=== PATIENT | female | born 1980 | race Caucasian/White ===

== ENCOUNTER 2019-11-30 19:20 | Observation (INO) | payer SELFPAY ==
[2019-11-30 19:51] LABS: #Eosinphils 0.2 thou/uL (0.0-0.7); #Monocytes 0.5 thou/uL (0.11-0.59); %Basophils 0.1 % (0.0-1.0); %Eosinophils 2.5 % (0.0-10.0); %Lymphocytes 29.7 % (21.0-51.0); %Monocytes 7.4 % (0.0-10.0); %Neutrophils 60.1 % (42.0-75.0); Hemoglobin 13.5 g/dL (12.0-16.0); Mean Corpuscular HGB CONC 34.3 g/dL (32.0-36.0); Mean Corpuscular Hemoglobin 33.1 pg (27.0-31.0); Mean Corpuscular Volume 96.7 fL (78.0-98.0); Mean Platelet Volume 6.6 fL (7.4-10.4); Platelet Count 245 thou/uL (130-400); RBC Distribution Width 11.1 % (11.5-14.5); Red Blood Cell (RBC) Count 4.08 mill/uL (4.20-5.40); White Blood Cell (WBC) Count 6.7 thou/uL (4.8-10.8)
--- NOTE | 2019-11-30 20:09 | RAD ---
RADIOGRAPH CHEST 1 VIEW: DATE: 11-30-2019 TIME: 7:13 P.M. HISTORY: 39-year-old female with chest pain. FINDINGS: There are no air space densities, pulmonary edema, pneumothorax, or cardiomegaly. The lateral costop hrenic angles are sharp. IMPRESSION: No acute cardiopulmonary findings. jn POS: JIN
[2019-11-30 20:13] LABS: ALT (SGPT) 40 U/L (8-55); AST (SGOT) 22 U/L (5-34); Alkaline Phosphatase 76 U/L (40-110); Anion Gap 11 mmol/L (10-20); BUN (Urea Nitrogen) 12 mg/dL (7.0-18.7); Bilirubin, Total 0.2 mg/dL (0.2-1.2); Calc. Creatinine Clearance 0 mL/min (70-130); Calcium 8.8 mg/dL (7.8-10.44); Carbon Dioxide 23 mmol/L (22-29); Chloride 108 mmol/L (98-107); Estimated GFR-MDRD 69; Globulin 2.7 g/dL (2.4-3.5); Glucose 137 mg/dL (70-105); Protein, Total 6.7 g/dL (6.0-8.3); Sodium 138 mmol/L (136-145)
[2019-11-30 23:43] LABS: Troponin I 0.089 ng/mL (< 0.028)
[2019-12-01] MEDS ORDERED: HumaLOG 300 UNITS/3 ML VIAL SC PRN ×2 (01:43)
[2019-12-01] MEDS ORDERED: Dextrose 5% in Water 1,000 ML IV PRN (01:43)
[2019-12-01] MEDS ORDERED: Dextrose 50% Abboject 50 ML SYRINGE SLOW IVP PRN (01:43)
[2019-12-01 02:14] VITALS: BMI 30.3
[2019-12-01] MEDS ORDERED: Ondansetron ODT 4 MG TAB PO PRN (02:20)
[2019-12-01] MEDS ORDERED: Acetaminophen 325 MG TAB PO PRN (02:20)
--- NOTE | 2019-12-01 02:28 | HP ---
PRIMARY CARE PHYSICIAN: Brandon. CHIEF COMPLAINT: Chest pain. HISTORY OF PRESENT ILLNESS: The patient is a 39-year-old female with a past medical history significant for diabetes type 2, former smoker, illicit drug abuse, methamphetamines, and PTSD who presents to the ER for the above complaint. The patient reports the acute onset of chest pain 45 minutes prior to the arrival at the ER. Location of the chest pain was her right chest, radiating to her back. She describes as sharp and squeezing, exacerbated with exertion and relieved by aspirin and nitroglycerin. The patient denies any other associated symptoms. The patient has a history of diabetes type 2, but no history of hypertension or high cholesterol. She denies any history of COPD or asthma. She did abuse methamphetamines greater than one year ago. She has no history of DVT or PE. She is mobile. She has not been recently admitted to hospital or had any recent surgeries. EMS was called. When EMS showed up, the patient was hypertensive and tachycardic. She was given aspirin and nitroglycerin sublingual, which relieved her pain. Upon presentation to the ER, the patient was afebrile, hypertensive with a blood pressure of 157/96, tachycardic with a heart rate of 93, respirations were 20. Pain was 1/10. EKG showed sinus rhythm, 98 beats per minute. No ST elevations. Chest x-ray was negative for any acute process. Troponin was 0.015. Second troponin was 0.089. CMP, CBC and LFTs were unremarkable. The patient was admitted to the floor. PAST MEDICAL HISTORY: 1. Diabetes, type 2. 2. PTSD. 3. Migraine headaches. PAST SURGICAL HISTORY: 1. Cholecystectomy. 2. Right hand mass. SOCIAL HISTORY: The patient currently has been at [facility]. She got out of [facility] and has been there for 55 days. She has a history of methamphetamine abuse, has not abused for the past year. She has a history of smoking, quit one year ago. Has no alcohol intake. FAMILY HISTORY: Contributory for cardiac disease, her mother and maternal grandmother. ALLERGIES: PENICILLIN. HOME MEDICATIONS: 1. Prazosin 1 mg p.o. at bedtime. 2. Topamax 25 mg p.o. b.i.d. 3. Tegretol 200 mg p.o. q.a.m. and 400 mg p.o. at bedtime. 4. Buspirone 10 mg p.o. b.i.d. 5. Vistaril 50 mg p.o. b.i.d. REVIEW OF SYSTEMS: All review of systems are negative unless otherwise stated in the HPI. PHYSICAL EXAMINATION: VITAL SIGNS: Temperature 98.1, blood pressure 157/96, heart rate 93, respirations 20, and SpO2 of 98% on room air, pain 0/10. CONSTITUTIONAL: The patient is alert and oriented to person, place, and time. Appears comfortable, nontoxic. No acute distress. HEAD: Atraumatic and normocephalic. EYES: Extraocular muscles are intact. PERRLA. ENT: Nares are patent bilaterally. Oropharynx is clear. Uvula is midline. Moist mucous membranes. No oral lesions. NECK: Supple. Trachea is midline. No JVD. No cervical adenopathy. Full range of motion. RESPIRATORY/CHEST: Respirations are even and unlabored. Clear to auscultation. No rhonchi, wheezes, or rales. CARDIOVASCULAR: S1, S2 appreciated. No murmurs, rubs, or gallops. ABDOMEN: Soft, nontender, nondistended. Active bowel sounds. No guarding or rigidity. No rebound tenderness. No abdominal bruit auscultated. BACK: Full range of motion. No cervical spinal tenderness. No CVA tenderness. UPPER EXTREMITIES: Full range of motion. Strength is normal. Sensation is intact. Palpable radial pulses. LOWER EXTREMITIES: Full range of motion, normal strength, sensation is intact. Palpable pedal pulses. No swelling. NEUROLOGICAL: The patient is alert and oriented to person, place, and time. Moves all extremities well. No focal deficits. Normal gait. PSYCHIATRIC: The patient is alert and oriented to person, place, and time. Normal affect. Denies any suicidal or homicidal ideation at this time. LABS AND DIAGNOSTICS: EKG, sinus rhythm. Chest x-ray, negative for acute process. Initial troponin 0.015. Second troponin 0.089. Sodium 138, potassium 4.0, chloride 108, CO2 23, BUN 12, creatinine 0.90, glucose 137, total bilirubin 0.2, AST 22, ALT 40, alkaline phosphatase 76, albumin 4.0. WBCs 6.7, hemoglobin 13.5, hematocrit 39.5, platelets 245. IMPRESSION AND PLAN: 1. Chest pain. We will admit the patient to the telemetry floor, observation status. Expected length of stay is less than 2 midnights. The patient presented with acute onset of chest pain with a past medical history of diabetes and illicit drug use. Chest pain was relieved by aspirin and nitroglycerin by EMS. The patient's HEART score is at 3, low risk. We will continue to trend troponins. We will check a BNP, TSH, fasting lipid, and mag. We will order an echo, cardiac stress test in the morning. We will check a UDS. We will leave the patient n.p.o. after midnight. We will continue aspirin. 2. Diabetes, type 2. The patient does not take any medications. She says she manages blood sugar by diet. The patient presented with a blood sugar of 137. We will place her on a mild sliding scale. We will check Accu-Cheks before meals and at bedtime. 3. Posttraumatic stress disorder. The patient denies any suicidal or homicidal ideation at this time. The patient takes prazosin, buspirone, and Vistaril at night. We will restart medications when reconciled by Nursing. 4. SCDs for deep venous thrombosis prophylaxis. No gastrointestinal prophylaxis. 5. The patient is a full code. 6. Discussed the case with Dr. Otto. Job ID: [id number] MTDD
[2019-12-01 02:29] LABS: BHCG - Serum Negative (NEGATIVE); Pregs Control Background? CLEAR/WHITE (CLR/WHITE); Pregs Control Bar Appear? YES (CONTROL BAR)
[2019-12-01] MEDS: Sodium Chloride 0.9% 1,000 ML IV SCH ×3 (02:32→20:52)
[2019-12-01 02:43] LABS: Troponin I 0.079 ng/mL (< 0.028)
[2019-12-01 02:45] LABS: Cardiac Risk 4.7 (Less than 4.5)
[2019-12-01 02:52] LABS: Thyroid Stimulating Hormone 3.4715 uIU/mL (0.35-4.94)
[2019-12-01 02:54] LABS: Bacteria/HPF None Seen HPF (None Seen); Bilirubin Negative (Negative); Blood, Urine Negative (Negative); Clarity Extra Turbid (Clear); Glucose, Urine (Dipstick) Normal (Negative); Ketone, Urine Negative (Negative); Leukocyte Negative Leu/uL (Negative); Nitrite Negative (Negative); Protein, Urine (Dipstick) 20 mg/dL (Neg-Trace); Urobilinogen Normal mg/dL (Less than 2); WBC/HPF 0-3 HPF (0-3); pH, Urine 7.5 (5.0-9.0)
[2019-12-01 02:58] LABS: Amphetamine Not Detected (NotDetected); Barbiturates Screen Not Detected (NotDetected); Benzodiazepine Screen Not Detected (NotDetected); Cocaine Metabolite Screen Not Detected (NotDetected); Medtox Control Line Valid? VALID (VALID); Medtox Reader # READER 4; Methadone Not Detected (NotDetected); Methamphetamine Not Detected (NotDetected); Opiate Screen Not Detected (NotDetected); Oxycodone Screen Not Detected (NotDetected); Phencyclidine (PCP) Not Detected (NotDetected); THC/Cannabinoid Screen Not Detected (NotDetected); Tricyclic Screen Not Detected (NotDetected)
[2019-12-01 06:04] LABS: #Basophils 0.1 thou/uL (0.0-0.2); #Eosinphils 0.2 thou/uL (0.0-0.7); #Lymphocytes 2.1 thou/uL (1.20-3.40); #Monocytes 0.7 thou/uL (0.11-0.59); #Neutrophils 4.1 thou/uL (1.40-6.50); %Basophils 1.2 % (0.0-1.0); %Eosinophils 2.6 % (0.0-10.0); %Lymphocytes 29.1 % (21.0-51.0); %Monocytes 9.6 % (0.0-10.0); %Neutrophils 57.6 % (42.0-75.0); Hemoglobin 12.8 g/dL (12.0-16.0); Mean Corpuscular HGB CONC 33.9 g/dL (32.0-36.0); Mean Corpuscular Hemoglobin 32.6 pg (27.0-31.0); Mean Platelet Volume 6.8 fL (7.4-10.4); Platelet Count 231 thou/uL (130-400); RBC Distribution Width 11.2 % (11.5-14.5); Red Blood Cell (RBC) Count 3.93 mill/uL (4.20-5.40); White Blood Cell (WBC) Count 7.2 thou/uL (4.8-10.8)
[2019-12-01 06:25] LABS: Anion Gap 11 mmol/L (10-20); BUN (Urea Nitrogen) 15 mg/dL (7.0-18.7); Calc. Creatinine Clearance 119 mL/min (70-130); Calcium 8.5 mg/dL (7.8-10.44); Carbon Dioxide 24 mmol/L (22-29); Chloride 110 mmol/L (98-107); Estimated GFR-MDRD 78; Glucose 90 mg/dL (70-105); Potassium 4.5 mmol/L (3.5-5.1); Sodium 140 mmol/L (136-145)
[2019-12-01 06:30] LABS: Troponin I 0.082 ng/mL (< 0.028)
[2019-12-01] MEDS: busPIRone HCl 10 MG TAB PO SCH ×2 (08:34→20:57)
[2019-12-01] MEDS: Aspirin 81 mg Enteric Coated Tablet PO SCH (08:35)
[2019-12-01] MEDS ORDERED: carBAMazepine 200 MG TAB PO SCH (09:00)
[2019-12-01] MEDS ORDERED: Prazosin HCl 1 MG CAP PO SCH (09:00)
[2019-12-01] MEDS: carBAMazepine 200 MG TAB PO SCH ×2 (09:46→20:58)
[2019-12-01] MEDS: hydrOXYzine Pamoate 25 mg Capsule PO SCH ×2 (09:46→20:57)
[2019-12-01] MEDS ORDERED: Aspirin Chewable 81 MG TAB ONE (14:10)
[2019-12-01] MEDS: Topiramate 25 MG TAB PO SCH ×2 (14:13→21:08)
--- NOTE | 2019-12-01 14:35 | NM ---
Exam: Nuclear medicine cardiac stress with EF and wall motion HISTORY: Chest pain TECHNIQUE: Patient was administered 10.2 mCi of technetium 99M sestamibi intravenously for rest imagi ng; 31.5 cm of technetium 90 9M sestamibi for stress imaging Cardiac gating is performed FINDINGS: Small fixed defect may be present in the superior aspect of the septum. No reversibility. 3 times a day is 0.75 End-diastolic volume is 67 mL End systolic volume is 14 mL Cardiac gating: Normal wall motion and thickening. 79% ejection fraction IMPRESSION: 1. Small fixed defect in the superior aspect of the septum. No reversibility. 2. 79% ejection fraction.
--- NOTE | 2019-12-01 17:54 | PDOC.HOSPP ---
- Subjective Encounter Date: 12/01/19 Encounter Time: 17:53 Subjective: Ms. Luis was seen today in follow-up of chest pain. She has not had any since yesterday. - Objective Vital Signs & Weight: Vital Signs (12 hours) Temp Pulse Resp BP BP Pulse Ox 12/01/19 17:17 97.0 F L 80 16 101/55 L 98 12/01/19 14:25 97.7 F 95 13 120/64 99 12/01/19 08:38 72 15 120/58 L 98 12/01/19 07:19 97.5 F L 72 15 120/58 L 98 Weight Weight 182 lb 5 oz I&O: 11/30/19 12/01/19 12/02/19 06:59 06:59 06:59 Intake Total 300 Output Total 100 Balance 200 Result Diagrams: 12/01/19 05:42 12/01/19 05:42 Additional Labs: Accuchecks 12/01/19 12/01/19 12/01/19 16:29 10:37 05:58 POC Glucose 137 H 90 93 Hospitalist ROS - Medication Medications: Active Medications Generic Name Dose Route Start Last Admin Trade Name Sander PRN Reason Stop Dose Admin Aspirin 81 mg 12/01/19 09:00 12/01/19 08:35 Ecotrin PO 81 mg DAILY JAY Administration Buspirone HCl 10 mg 12/01/19 09:00 12/01/19 08:34 Buspar PO 10 mg BID JAY Administration Carbamazepine 200 mg 12/01/19 09:00 12/01/19 09:46 Tegretol PO 200 mg QAM JAY Administration Hydroxyzine Pamoate 50 mg 12/01/19 09:00 12/01/19 09:46 Vistaril PO 50 mg BID JAY Administration Sodium Chloride 1,000 mls @ 75 mls/hr 12/01/19 01:45 12/01/19 02:32 Normal Saline 0.9% IV 1,000 mls .[id number] JAY Administration Prazosin HCl 1 mg 12/01/19 09:00 12/01/19 14:13 Minipress PO 1 mg DAILY JAY Administration Sodium Chloride 10 ml 12/01/19 09:00 12/01/19 09:59 Flush - Normal Saline IVF Not Given Q12HR JAY Topiramate 25 mg 12/01/19 09:00 12/01/19 14:13 Topamax PO 25 mg BID JAY Administration - Exam Eye: PERRL, anicteric sclera Heart: RRR, no murmur, no gallops, no rubs, normal peripheral pulses Respiratory: CTAB, no wheezes, no rales, no ronchi, normal chest expansion Gastrointestinal: soft, non-tender, non-distended, normal bowel sounds, no palpable masses Extremities: no cyanosis, no edema Hosp A/P (1) Chest pain Code(s): R07.9 - CHEST PAIN, UNSPECIFIED Status: Acute (2) Diabetes mellitus type 2 in nonobese Code(s): E11.9 - TYPE 2 DIABETES MELLITUS WITHOUT COMPLICATIONS Status: Chronic - Plan * Chest pain- ? etiology. Her description does not sound cardiac, but she is diabetic, and a former smoker. She moved at least 15-20 pack years before she quit. She tells me her mother had a 3 vessel CABG at around 40 year of age. She has poor follow-up, and does not have an established PCP. WIll therefore consult Cardiology for further recommendations * DM- blood glucose is stable *
--- NOTE | 2019-12-02 07:35 | PDOC.HOSPP ---
- Subjective Encounter Date: 12/02/19 Encounter Time: 08:51 Subjective: Ms. Luis still complains of chest pain over her sternum, and now a little bit on the left side of her chest. She also reports some numbness and tingling in her left hand, but she thinks this could be from sleeping in a bad position. Denies any nausea, vomiting, diaphoresis, jaw pain. - Objective Vital Signs & Weight: Vital Signs (12 hours) Temp Pulse Resp BP Pulse Ox 12/02/19 03:37 97.5 F L 72 18 125/59 L 98 12/01/19 19:50 98.1 F 87 18 122/65 98 Weight Weight 183 lb 4 oz I&O: 12/01/19 12/02/19 12/03/19 06:59 06:59 06:59 Intake Total 300 1545 Output Total 100 Balance 200 1545 Result Diagrams: 12/01/19 05:42 12/01/19 05:42 Additional Labs: Accuchecks 12/02/19 12/01/19 12/01/19 05:43 20:54 16:29 POC Glucose 87 110 137 H 12/01/19 10:37 POC Glucose 90 Hospitalist ROS - Medication Medications: Active Medications Generic Name Dose Route Start Last Admin Trade Name Freq PRN Reason Stop Dose Admin Aspirin 81 mg 12/01/19 09:00 12/01/19 08:35 Ecotrin PO 81 mg DAILY JAY Administration Buspirone HCl 10 mg 12/01/19 09:00 12/01/19 20:57 Buspar PO 10 mg BID JAY Administration Carbamazepine 400 mg 12/01/19 21:00 12/01/19 20:58 Tegretol PO 400 mg QPM JAY Administration Carbamazepine 200 mg 12/01/19 09:00 12/01/19 09:46 Tegretol PO 200 mg QAM JAY Administration Hydroxyzine Pamoate 50 mg 12/01/19 09:00 12/01/19 20:57 Vistaril PO 50 mg BID JAY Administration Sodium Chloride 1,000 mls @ 75 mls/hr 12/01/19 01:45 12/01/19 20:52 Normal Saline 0.9% IV 1,000 mls .[id number] JAY Administration Sodium Chloride 10 ml 12/01/19 09:00 12/01/19 20:58 Flush - Normal Saline IVF Not Given Q12HR JAY Topiramate 25 mg 12/01/19 09:00 12/01/19 21:08 Topamax PO 25 mg BID JAY Administration - Exam General Appearance: NAD, awake alert Eye: PERRL, anicteric sclera ENT: normocephalic atraumatic Neck: supple, no carotid bruit Heart: RRR, no murmur, no gallops, no rubs Respiratory: CTAB Gastrointestinal: soft, non-tender, non-distended, normal bowel sounds Extremities: no cyanosis, no edema Musculoskeletal: normal tone, normal strength Psychiatric: normal affect, normal behavior, A&O x 3 Hosp A/P (1) Chest pain Code(s): R07.9 - CHEST PAIN, UNSPECIFIED Status: Acute (2) Diabetes mellitus type 2 in nonobese Code(s): E11.9 - TYPE 2 DIABETES MELLITUS WITHOUT COMPLICATIONS Status: Chronic - Plan * Chest pain- ? etiology. Her description does not sound cardiac, but she is diabetic, and a former smoker. She moved at least 15-20 pack years before she quit. She tells me her mother had a 3 vessel CABG at around 40 year of age. She has poor follow-up, and does not have an established PCP. WIll therefore consult Cardiology for further recommendations * DM- blood glucose is stable * * Patient was seen and discussed with Day Holder MS-3. She denies chest pain overnight. No new complaints. Her exam is unchanged. She has been evaluated by Cardiology, and will likely have cardiac cath tomorrow. *
[2019-12-02] MEDS: busPIRone HCl 10 MG TAB PO SCH ×2 (09:23→20:29)
[2019-12-02] MEDS: carBAMazepine 200 MG TAB PO SCH ×2 (09:23→20:34)
[2019-12-02] MEDS: Aspirin 81 mg Enteric Coated Tablet PO SCH (09:23)
[2019-12-02] MEDS: hydrOXYzine Pamoate 25 mg Capsule PO SCH ×2 (09:23→20:29)
[2019-12-02] MEDS: Topiramate 25 MG TAB PO SCH ×2 (10:41→20:30)
[2019-12-02] MEDS: Nitroglycerin 0.4 MG TAB (25 Tab Bottle) PO PRN ×3 (11:28→11:38)
--- NOTE | 2019-12-02 17:20 | CON ---
DATE OF CONSULTATION: 12/02/2019 REASON FOR CONSULTATION: Chest pain. HISTORY OF PRESENT ILLNESS: Ms. Luis is a very pleasant 39-year-old white female, who comes to the hospital for chest pain. She came in the on the and was admitted for rule out. Eventually underwent stress testing and echocardiogram. Echo showed an EF of 55% to 60% with mild MR and mild TR. Fairly unremarkable and stress test showed normal LV function. No reversible ischemia. There appears to be either a scar versus artifact in the superior aspect of the septum. The EF was 79% on that study. She was getting ready to be sent home. However, she developed chest pain again this morning, so Cardiology has been consulted for this. She does have a significant family history of coronary artery disease with her mother needing multivessel bypass in her mid 40s and her grandmother having heart attacks in her late 40s as well. Ms. Luis on my evaluation, is chest pain-free, however, the last episode of pain was just a few hours ago. PAST MEDICAL HISTORY: 1. Type 2 diabetes. 2. PTSD. 3. Migraine headaches. PAST SURGICAL HISTORY: 1. Cholecystectomy. 2. Right hand mass. SOCIAL HISTORY: She is currently in a [facility]. She recently got out of group home and was ready to go back to her home this coming weekend. She was in group home for methamphetamine abuse. This was information she gave me without me prompting her for it. She is very proud of being clean for several, several days over a year now and I encouraged her with this as well. FAMILY HISTORY: Early coronary artery disease as above. OUTPATIENT MEDICATIONS: 1. Prazosin. 2. Topamax. 3. Tegretol. 4. BuSpar. 5. Vistaril 50 mg b.i.d. ALLERGIES: PENICILLIN. REVIEW OF SYSTEMS: 12-point review of systems was done and was found to be negative other than stated in history of present illness. PHYSICAL EXAMINATION: VITAL SIGNS: Temperature 98.1, pulse 82, respiratory rate 19, saturations 99% on room air, blood pressure 119/63. GENERAL: Awake, alert, oriented x3, in no distress. HEENT: Normocephalic, atraumatic. NECK: Supple. LUNGS: Clear. CARDIOVASCULAR: S1 and S2. No S3 or S4. No murmurs. ABDOMEN: Soft. Positive bowel sounds. EXTREMITIES: No edema. SKIN: Warm and dry. LABORATORY DATA: Laboratory work was reviewed. Troponin was in the indeterminate range. test was negative. TSH was normal. CBC was unremarkable with normal white count and hemoglobin. UA with 2+ crystals, but no bacteria. Toxicology was completely undetectable. Echocardiogram and stress testing were reviewed. ASSESSMENT: Chest pain. This is atypical, but ongoing and a very high risk for early coronary artery disease with her family history. She also had a remote history of tobacco use, but she has not smoked in a long time now. PLAN: 1. Certainly high risk for multivessel disease with her history of smoking and family history. At this point, she has continued to have episodes of chest pain despite no reversible findings on the stress test. We will plan on further risk stratification with a heart catheterization. We spoke at length about the risks and benefits of the procedure. Risks included, but not limited to stroke, [place], , bleeding, need for blood transfusion, limb loss, organ loss. The patient understands and verbalized understanding of this and agrees to proceed. We spoke about bare-metal stent versus drug-eluting stent. We will plan on doing bare-metal stents. 2. Further recommendations per results of coronary angiogram. Job ID: [id number]
[2019-12-02] MEDS: Sodium Chloride 0.9% 1,000 ML IV SCH (19:22)
[2019-12-02] MEDS ORDERED: Prazosin HCl 1 MG CAP PO SCH (21:00)
[2019-12-03] MEDS: Sodium Chloride 0.9% 1,000 ML IV SCH ×3 (01:18→12:47)
[2019-12-03] MEDS: Aspirin 81 mg Enteric Coated Tablet PO SCH (05:37)
[2019-12-03] MEDS: busPIRone HCl 10 MG TAB PO SCH (05:37)
[2019-12-03] MEDS: hydrOXYzine Pamoate 25 mg Capsule PO SCH (05:37)
[2019-12-03] MEDS: carBAMazepine 200 MG TAB PO SCH (05:38)
[2019-12-03] MEDS: Topiramate 25 MG TAB PO SCH (05:38)
[2019-12-03] MEDS ORDERED: Iopamidol 370 76% 100 ML VIAL ONE (10:02)
[2019-12-03] MEDS ORDERED: Sodium Chloride 0.9% 200 ML IV PRN (11:28)
[2019-12-03] MEDS ORDERED: Sodium Chloride 0.9% 500 ML IV SCH (11:30)
--- NOTE | 2019-12-03 13:14 | PDOC.HOSPP ---
- Subjective Encounter Date: 12/03/19 Encounter Time: 11:45 Subjective: Patient was seen as a follow up for chest pain, diabetes and post heart cath today. She denies any pain and is pleased with the results of her cath. - Objective Vital Signs & Weight: Vital Signs (12 hours) Temp Pulse Resp BP Pulse Ox 12/03/19 10:33 97 12/03/19 03:55 98.6 F 77 16 106/54 L 97 Weight Weight 183 lb 4 oz I&O: 12/02/19 12/03/19 12/04/19 06:59 06:59 06:59 Intake Total 1545 960 Output Total 300 Balance 1545 660 Result Diagrams: 12/01/19 05:42 12/01/19 05:42 Additional Labs: Accuchecks 12/03/19 12/03/19 12/02/19 11:57 06:48 20:30 POC Glucose 97 103 113 H 12/02/19 17:10 POC Glucose 96 EKG Reviewed by me: Yes (SR) Hospitalist ROS - Medication Medications: Active Medications Generic Name Dose Route Start Last Admin Trade Name Freq PRN Reason Stop Dose Admin Aspirin 81 mg 12/01/19 09:00 12/03/19 05:37 Ecotrin PO 81 mg DAILY JAY Administration Buspirone HCl 10 mg 12/01/19 09:00 12/03/19 05:37 Buspar PO 10 mg BID JAY Administration Carbamazepine 400 mg 12/01/19 21:00 12/02/19 20:34 Tegretol PO 400 mg QPM JAY Administration Carbamazepine 200 mg 12/01/19 09:00 12/03/19 05:38 Tegretol PO 200 mg QAM JAY Administration Hydroxyzine Pamoate 50 mg 12/01/19 09:00 12/03/19 05:37 Vistaril PO 50 mg BID JAY Administration Sodium Chloride 1,000 mls @ 100 mls/hr 12/03/19 00:00 12/03/19 12:47 Normal Saline 0.9% IV Not Given .Q10H JAY Sodium Chloride 500 mls @ 100 mls/hr 12/03/19 11:30 12/03/19 12:37 Normal Saline 0.9% IV 12/03/19 16:29 500 mls .Q5H JAY Administration Nitroglycerin 0.4 mg 12/01/19 01:38 12/02/19 11:38 Nitrostat PO 0.4 mg Q5MIN PRN Administration Chest Pain Prazosin HCl 1 mg 12/02/19 21:00 12/02/19 20:29 Minipress PO 1 mg HS JAY Administration Sodium Chloride 10 ml 12/01/19 09:00 12/03/19 05:38 Flush - Normal Saline IVF Not Given Q12HR JAY Topiramate 25 mg 12/01/19 09:00 12/03/19 05:38 Topamax PO 25 mg BID JAY Administration - Exam General Appearance: NAD, awake alert ENT: normocephalic atraumatic Neck: supple, symmetric, no lymphadenopathy Heart: RRR, no murmur, no gallops, no rubs Respiratory: CTAB, no wheezes, no rales, no ronchi Gastrointestinal: soft, non-tender, non-distended, normal bowel sounds Extremities: no cyanosis, no clubbing, no edema Psychiatric: normal affect, normal behavior Hosp A/P (1) Chest pain Code(s): R07.9 - CHEST PAIN, UNSPECIFIED Status: Acute (2) Diabetes mellitus, type 2 Status: Chronic - Plan Chest pain has resolved at this time, Pt states her heart cath was "all clear", no interventions performed in medical lab technologist, will await final report from cardiology. Currently on bed rest for 2 hours. Diabetes- accucheks within normal ranges, continue to monitor Anticipate discharge this afternoon if ok with cardiology
--- NOTE | 2019-12-03 16:28 | ULT ---
Ultrasound Doppler duplex right groin: 12/03/2019 HISTORY: 39-year-old female with right groin pain after cardiac catheterization today. TECHNIQUE: Grayscale, color-flow, and spectral analysis, of right groin with attention to common femoral artery. FINDINGS: Visualization of groin contents somewhat limited by body habitus. Normal pulsatile flow demonstrated in the artery labeled as common femoral artery. Common femoral vein was not evaluated with pulse Doppler, and therefore this study does not evaluate for AV fistula. No hematoma is identified. No pseudoaneurysm is identified. IMPRESSION: No pseudoaneurysm identified.
--- NOTE | 2019-12-03 19:50 | DIS ---
DATE OF ADMISSION: 12/01/2019 DATE OF DISCHARGE: 12/03/2019 DISCHARGE DISPOSITION AND FOLLOWUP: The patient was discharged to home. She was seen and examined on the day of discharge. Denies any new complaints. INPATIENT CONSULTS: Cardiology. CLINICAL COURSE: The patient is a 39-year-old female with past medical history significant for diabetes type 2, former smoker, illicit drug use of methamphetamines, and PTSD, who presented to the ER for her chest pain. Chest pain was in her right chest, which radiated to her back. It was a sharp and squeezing pain, exacerbated with exertion and the pain was relieved by aspirin and nitroglycerin. While here during hospital stay, her troponins ranged from 0.015 to the highest of 0.089. She did have a cardiac stress test, which was completed here and showed a small fixed defect in the superior aspect of the septum with no reversibility, 79% ejection fraction. The patient was actually going to be discharged after the normal stress test; however, she developed further chest pain, so cardiology was consulted. On the day of discharge, they completed heart catheterization, which showed no disease and at that time, she was given discharge instructions after her bedrest was complete. When she first got up from her bed rest, she started bleeding a small amount from her groin site and developed a sharp pain that went down her leg and ultrasound was completed prior to discharge, which showed no pseudoaneurysm. The patient was then discharged with post cath activity restrictions. FINAL DIAGNOSES: 1. Chest pain. 2. Type 2 diabetes. 3. Posttraumatic stress disorder. DISCHARGE MEDICATIONS: She was discharged on all of her home medications. DISCHARGE INSTRUCTIONS: The patient is to follow up with [facility] within the next [address] Valdovinos in the next 2 to 3 weeks with Cardiology. TIME SPENT: Total time coordinating the discharge of this patient. 25 minutes. Job ID: [id number]
[2019-12-03 20:40] VITALS: TEMP 97.8
[2019-12-03 20:55] VITALS: BP 145/64
== END 2019-12-03 19:30 | disposition home or self-care (01) ==
LOC: ERS 19:20 → 2NO 12-01 00:53
PROVIDERS: ADMIT Internal Medicine; ATTEND Internal Medicine
PROC: 4A023N7 Measurement of Cardiac Sampling and Pressure, Left Heart, Percutaneous Approach (ICD-10-PCS; principal; 2019-12-03)
PROC: B2011ZZ Plain Radiography of Multiple Coronary Arteries using Low Osmolar Contrast (ICD-10-PCS; 2019-12-03)
DX: R07.89 Other chest pain (principal); E11.9 Type 2 diabetes mellitus without complications; F43.10 Post-traumatic stress disorder, unspecified; Z79.82 Long term (current) use of aspirin; Z79.899 Other long term (current) drug therapy; Z87.891 Personal history of nicotine dependence; Z88.0 Allergy status to penicillin
CPT/HCPCS: 36415; 36416; 71045; 78452; 80048; 80053; 80061; 80306; 81001; 83036; 83735; 83880; 84443; 84484; 84703; 85025; 90471; 90732; 93005; 93017; 93306; 93454; 93926; 94760; A9500; G0009; G0378; J1644; Q0177; Q9967